=== PATIENT | female | born 1990 | race African-American/Black ===

== ENCOUNTER 2022-06-17 12:25 | Inpatient (IN) | payer BC ==
[2022-06-17] MEDS ORDERED: AMPICILLIN SODIUM 2 GM VIAL ONE (14:06)
[2022-06-17] MEDS ORDERED: AMPICILLIN - 2 GM in SODIUM CHLORIDE 100 ML IVPB ONE (14:24)
[2022-06-17] MEDS ORDERED: ELECTROLYTE-148 SOLN 1,000 ML IV SCH (14:30)
[2022-06-17 14:35] VITALS: BMI 31.9
[2022-06-17] MEDS ORDERED: PROMETHAZINE HCL 25 MG/1 ML VIAL IVPUSH ONE (14:41)
[2022-06-17] MEDS ORDERED: OXYTOCIN 15 UNITS/ LR 250 ML 250 ML IVPB SCH (14:45)
[2022-06-17] MEDS ORDERED: OXYTOCIN 30 UNITS in 0.9% NS 30 UNIT/500 ML INFUS.BAG IVPB SCH (14:45)
[2022-06-17] MEDS ORDERED: BUTORPHANOL TARTRATE 1 MG/ML VIAL IVPUSH ONE (15:00)
[2022-06-17] MEDS ORDERED: OXYTOCIN 30 UNITS in 0.9% NS 30 UNIT/500 ML INFUS.BAG IVPB ONE (16:09)
[2022-06-17 16:16] LABS: BASO % 0.3 % (0-2.0); EOS % 0.5 % (0-4.5); HEMATOCRIT 28.2 % (32.4-45.2); HEMOGLOBIN 9.9 GM/dL (10.7-15.3); LYMPH % 33.1 % (8-40); MCH 26.3 pg (25.7-33.7); MCHC 35.2 g/dl (32.0-36.0); MEAN CELL VOLUME 74.5 fl (80-96); MEAN PLT VOLUME 8.1 fl (7.5-11.1); MONO % 5.7 % (3.8-10.2); NEUT % 60.4 % (42.8-82.8); PLATELET COUNT 305 10^3/uL (134-434); RBC 3.79 M/mm3 (3.60-5.2); RDW 14.6 % (11.6-15.6); WHITE BLOOD COUNT 10.6 K/mm3 (4.0-10.0)
[2022-06-17 16:25] LABS: INR 1.05 (0.83-1.09); PROTHROMBIN TIME (PATIENT) 12.1 SEC (9.7-13.0)
[2022-06-17 16:28] LABS: ACTIVATED PTT 27.2 SECONDS (25.2-36.5)
[2022-06-17 16:30] LABS: CALCIUM 8.7 mg/dL (8.5-10.1)
[2022-06-17 16:31] LABS: BLOOD UREA NITROGEN 5.2 mg/dL (7-18)
[2022-06-17 16:34] LABS: CREATININE 0.6 mg/dL (0.55-1.3)
[2022-06-17] MEDS ORDERED: SODIUM CHLORIDE 100 ML IVPB ONE (17:29)
[2022-06-17] MEDS ORDERED: AMPICILLIN SODIUM 1 GM VIAL ONE ×2 (17:30→22:20)
[2022-06-17] MEDS: AMPICILLIN - 1 GM in SODIUM CHLORIDE 100 ML IVPB SCH ×2 (17:47→22:30)
[2022-06-17] MEDS ORDERED: BUTORPHANOL TARTRATE 2 MG/ML VIAL ONE (20:03)
[2022-06-17] MEDS ORDERED: PROMETHAZINE HCL 25 MG/1 ML VIAL ONE (20:04)
[2022-06-17] MEDS ORDERED: FENTANYL/BUPIVACAINE/NS/PF - PCEA - 50 ML DISP.SYRIN EP ONE (22:28)
[2022-06-17] MEDS ORDERED: NALOXONE HCL 0.4 MG/ML VIAL IVPUSH PRN (22:38)
[2022-06-17] MEDS ORDERED: BUPIVACAINE HCL/PF 0.25% (2.5MG/ML) 10 ML VIAL ONE (22:40)
[2022-06-17] MEDS ORDERED: FENTANYL/BUPIVACAINE/NS/PF - PCEA - 50 ML DISP.SYRIN EP SCH (22:45)
[2022-06-18] MEDS ORDERED: AMPICILLIN SODIUM 1 GM VIAL ONE ×2 (02:43→06:01)
[2022-06-18] MEDS ORDERED: SODIUM CHLORIDE 100 ML IVPB ONE (02:43)
[2022-06-18] MEDS: AMPICILLIN - 1 GM in SODIUM CHLORIDE 100 ML IVPB SCH ×3 (02:45→10:26)
[2022-06-18] MEDS ORDERED: FENTANYL/BUPIVACAINE/NS/PF - PCEA - 50 ML DISP.SYRIN EP ONE ×2 (03:43→07:18)
[2022-06-18] MEDS ORDERED: BUPIVACAINE HCL/PF 0.25% (2.5MG/ML) 10 ML VIAL ONE (06:55)
[2022-06-18] MEDS ORDERED: OXYTOCIN 20 UNITS in 0.9% NS 20 UNIT/1,000 ML INFUS.BAG IV ONE (07:39)
[2022-06-18] MEDS ORDERED: METHYLERGONOVINE MALEATE 0.2 MG/1 ML AMP IM PRN (09:38)
[2022-06-18] MEDS ORDERED: oxyCODONE HCL 5 MG TABLET PO PRN (09:38)
[2022-06-18] MEDS ORDERED: WITCH HAZEL 50% (TUCKS) 40 PAD/JAR PAD TP PRN (09:38)
[2022-06-18] MEDS ORDERED: IBUPROFEN 600 MG TABLET (FP) PO PRN (09:38)
[2022-06-18] MEDS ORDERED: BISACODYL 10 MG SUPP.RECT RC PRN (09:38)
[2022-06-18] MEDS ORDERED: BENZOCAINE 20% 57 GM BOTTLE TP PRN (09:38)
[2022-06-18] MEDS ORDERED: BENZOCAINE 28 GM HEMORRHOIDAL OINTMENT TP PRN (09:38)
[2022-06-18] MEDS ORDERED: ACETAMINOPHEN 325 MG TABLET (FP) PO PRN (09:38)
[2022-06-18] MEDS ORDERED: OXYTOCIN 20 UNITS in 0.9% NS 20 UNIT/1,000 ML INFUS.BAG IV SCH (09:45)
[2022-06-18 09:56] LABS: CORD BASE EXCESS -4.1 mmol/L (0-2); CORD HCO3 20.3 mmHg (20-29); CORD PCO2 35.4 mmHg (30-78); CORD pH 7.376 (7.14-7.44)
[2022-06-18 10:06] LABS: CORD BASE EXCESS -7.3 mmol/L (0-2); CORD PCO2 46.9 mmHg (30-78); CORD pH 7.248 (7.14-7.44)
[2022-06-19 09:38] LABS: HEMATOCRIT 28.5 % (32.4-45.2); HEMOGLOBIN 9.7 GM/dL (10.7-15.3); MCHC 33.9 g/dl (32.0-36.0); MEAN CELL VOLUME 73.9 fl (80-96); MEAN PLT VOLUME 7.9 fl (7.5-11.1); PLATELET COUNT 320 10^3/uL (134-434); RBC 3.86 M/mm3 (3.60-5.2); RDW 14.8 % (11.6-15.6)
[2022-06-19 10:08] LABS: ANISOCYTOSIS 0; HELMET CELLS 0; HOWELL-JOLLY BODIES 0; MACROCYTOSIS 0; OVALOCYTE 0; ROULEAU 0; SICKELED CELLS 0; TARGET CELLS 0; TEAR DROP CELLS 0; TOXIC GRANULATION 0
[2022-06-19 13:23] LABS: POC NITRAZINE POS
[2022-06-19] MEDS: AMPICILLIN - 1 GM in SODIUM CHLORIDE 100 ML IVPB SCH (19:41)
[2022-06-19] MEDS ORDERED: SENNOSIDES/DOCUSATE COMBO (SENNA PLUS) TABLET (UD) PO PRN (22:00)
[2022-06-20 09:10] LABS: BASO % 0.4 % (0-2.0); EOS % 1.8 % (0-4.5); HEMATOCRIT 29.6 % (32.4-45.2); HEMOGLOBIN 10.4 GM/dL (10.7-15.3); MCH 26.1 pg (25.7-33.7); MCHC 35.1 g/dl (32.0-36.0); MEAN CELL VOLUME 74.3 fl (80-96); MONO % 5.6 % (3.8-10.2); NEUT % 58.2 % (42.8-82.8); PLATELET COUNT 312 10^3/uL (134-434); RBC 3.98 M/mm3 (3.60-5.2)
[2022-06-20 10:37] VITALS: BP 122/84; PULSE 78; RESP 18; TEMP 97.2
== END 2022-06-20 13:10 | disposition home or self-care (01) | DRG 807 ==
LOC: JDEL 12:25 → JLDR 13:40 → J3W 06-18 12:00
PROVIDERS: ADMIT Obstetrics & Gynecology; ATTEND Obstetrics & Gynecology
PROC: 10E0XZZ Delivery of Products of Conception, External Approach (ICD-10-PCS; principal; 2022-06-18)
PROC: 0HQ9XZZ Repair Perineum Skin, External Approach (ICD-10-PCS; 2022-06-18)
PROC: 0W8NXZZ Division of Female Perineum, External Approach (ICD-10-PCS; 2022-06-18)
DX: O70.0 First degree perineal laceration during delivery (principal); O99.213 Obesity complicating pregnancy, third trimester; O99.824 Streptococcus B carrier state complicating childbirth; Z3A.39 39 weeks gestation of pregnancy; Z37.0 Single live birth
CPT/HCPCS: 36415; 36600; 59409; 80048; 82803; 83986-QW; 85025; 85610; 85730; 86780; 86850; 86900; 86901; C9803-CS; U0003; U0005

== ENCOUNTER 2022-11-13 08:31 | Emergency (ER) | payer BC, OTHER ==
[2022-11-13 08:37] VITALS: RESP 18; TEMP 98.6; BMI 27.6
[2022-11-13] MEDS ORDERED: KETOROLAC TROMETHAMINE 30 MG/1 ML VIAL IVPUSH ONE (09:28)
[2022-11-13] MEDS ORDERED: METOCLOPRAMIDE HCL INJECTION 10 MG/2 ML VIAL IVPB ONE (09:28)
[2022-11-13] MEDS ORDERED: SODIUM CHLORIDE 1,000 ML IV STA (09:29)
[2022-11-13] MEDS ORDERED: METOCLOPRAMIDE HCL INJECTION 10 MG/2 ML VIAL ONE (09:42)
[2022-11-13] MEDS ORDERED: KETOROLAC TROMETHAMINE 30 MG/1 ML VIAL ONE (09:42)
[2022-11-13 10:01] LABS: BASO % 1.2 % (0-2.0); EOS % 3.3 % (0-4.5); HEMATOCRIT 31.5 % (32.4-45.2); HEMOGLOBIN 10.8 GM/dL (10.7-15.3); LYMPH % 45.2 % (8-40); MCH 26.6 pg (25.7-33.7); MCHC 34.4 g/dl (32.0-36.0); MEAN CELL VOLUME 77.2 fl (80-96); MEAN PLT VOLUME 7.9 fl (7.5-11.1); MONO % 7.7 % (3.8-10.2); NEUT % 42.6 % (42.8-82.8); PLATELET COUNT 316 10^3/uL (134-434); RBC 4.08 M/mm3 (3.60-5.2); RDW 14.1 % (11.6-15.6); WHITE BLOOD COUNT 5.4 K/mm3 (4.0-10.0)
[2022-11-13 10:25] LABS: CALCIUM 9.2 mg/dL (8.5-10.1)
[2022-11-13 10:26] LABS: ALBUMIN 3.8 g/dl (3.4-5.0); BLOOD UREA NITROGEN 10.8 mg/dL (7-18)
[2022-11-13 10:29] LABS: CREATININE 0.6 mg/dL (0.55-1.3)
[2022-11-13 10:30] LABS: TOT PROT 6.8 g/dl (6.4-8.2)
[2022-11-13 10:31] LABS: BILIRUBIN,TOTAL 0.5 mg/dL (0.2-1)
[2022-11-13 12:53] VITALS: BP 117/78; PULSE 69
== END 2022-11-13 12:54 | disposition home or self-care (01) ==
LOC: JER 08:31
PROC: 3E0333Z Introduction of Anti-inflammatory into Peripheral Vein, Percutaneous Approach (ICD-10-PCS; principal; 2022-11-13)
PROC: 3E033GC Introduction of Other Therapeutic Substance into Peripheral Vein, Percutaneous Approach (ICD-10-PCS; 2022-11-13)
PROC: 3E0337Z Introduction of Electrolytic and Water Balance Substance into Peripheral Vein, Percutaneous Approach (ICD-10-PCS; 2022-11-13)
DX: R51.9 Headache, unspecified (principal)
CPT/HCPCS: 0241U-QW; 36415; 80053; 85025; 99284-25

== ENCOUNTER 2023-03-05 02:31 | Inpatient (IN) | payer OTHER ==
[2023-03-05 02:39] VITALS: BMI 32.8
[2023-03-05] MEDS ORDERED: ACETAMINOPHEN 1000 MG/100 ML BAG IVPB ONE (03:03)
[2023-03-05] MEDS ORDERED: LACTATED RINGERS SOLUTION 1,000 ML/1,000 ML INFUS.BAG IV SCH ×2 (03:15→08:45)
[2023-03-05] MEDS ORDERED: ACETAMINOPHEN INJECTION 100 ML IVPB ONE (03:16)
[2023-03-05 03:48] LABS: VENOUS BASE EXCESS -1.4 mmol/L (-2-2); VENOUS O2 SATURATION 58.3 % (70-80); VENOUS PH 7.394 (7.310-7.410)
[2023-03-05 03:49] LABS: BASO % 0.8 % (0-2.0); EOS % 0.5 % (0-4.5); HEMOGLOBIN 9.8 GM/dL (10.7-15.3); MCH 24.1 pg (25.7-33.7); MCHC 33.7 g/dl (32.0-36.0); MEAN CELL VOLUME 71.4 fl (80-96); MEAN PLT VOLUME 7.2 fl (7.5-11.1); MONO % 1.5 % (3.8-10.2); NEUT % 85.2 % (42.8-82.8); PLATELET COUNT 343 10^3/uL (134-434); RBC 4.07 M/mm3 (3.60-5.2); RDW 14.7 % (11.6-15.6); WHITE BLOOD COUNT 3.9 K/mm3 (4.0-10.0)
[2023-03-05 03:52] LABS: EPI CELLS 14 /uL (0-25.1); HYALINE CASTS 0 /uL (0-3.1); PH,URINE 5.5 (5.0-8.0); URINE APPEARANCE CLEAR; URINE BACTERIA 152 /uL (0-1359); URINE BILIRUBIN NEGATIVE (NEGATIVE); URINE COLOR YELLOW; URINE GLUCOSE (UA) NEGATIVE (NEGATIVE); URINE KETONE NEGATIVE (NEGATIVE); URINE LEUK ESTERASE NEGATIVE (NEGATIVE); URINE NITRITE NEGATIVE (NEGATIVE); URINE PROTEIN NEGATIVE (NEGATIVE); URINE RBC 7 /uL (0-23.9); URINE UROBILINOGEN 0.2 mg/dL (0.2-1.0); URINE WBC 28 /uL (0-25.8)
[2023-03-05 04:08] LABS: CHLORIDE 107 mmol/L (98-107); SODIUM 140 mmol/L (136-145)
[2023-03-05 04:10] LABS: ALBUMIN 3.8 g/dl (3.4-5.0); CALCIUM 8.9 mg/dL (8.5-10.1)
[2023-03-05 04:11] LABS: ANION GAP 9 MMOL/L (8-16); BLOOD UREA NITROGEN 14.2 mg/dL (7-18); CO2 24 mmol/L (21-32); GLUCOSE,RANDOM 86 mg/dL (74-106); MAGNESIUM 1.9 mg/dL (1.8-2.4)
[2023-03-05 04:13] LABS: CREATININE 0.8 mg/dL (0.55-1.3); SGOT/AST 23 U/L (15-37)
[2023-03-05 04:14] LABS: SGPT/ALT 22 U/L (13-61)
[2023-03-05 04:15] LABS: BILIRUBIN,TOTAL 0.3 mg/dL (0.2-1)
[2023-03-05 04:16] LABS: ALK PHOS 135 U/L (45-117)
[2023-03-05 04:17] LABS: LACTIC ACID 2.1 mmol/L (0.4-2.0)
[2023-03-05] MEDS ORDERED: KETOROLAC TROMETHAMINE 15 MG/ML VIAL IVPUSH ONE (04:46)
[2023-03-05] MEDS ORDERED: KETOROLAC TROMETHAMINE 15 MG/ML VIAL ONE (04:47)
[2023-03-05] MEDS: LACTATED RINGERS SOLUTION 1,000 ML/1,000 ML INFUS.BAG IV SCH ×2 (04:56→17:30)
[2023-03-05 06:04] LABS: INR 1.17 (0.83-1.09); PROTHROMBIN TIME (PATIENT) 13.6 SEC (9.7-13.0)
[2023-03-05] MEDS ORDERED: CEFTRIAXONE 2 GM-D5W BAG 2 GM/50 ML BAG IVPB ONE (06:40)
[2023-03-05] MEDS ORDERED: VANCOMYCIN HCL 1,500 MG in DEXTROSE 5%-WATER - 500 ML IVPB ONE (06:41)
[2023-03-05] MEDS ORDERED: CEFTRIAXONE 2 GM/100 ML BAG IVPB ONE (06:51)
[2023-03-05] MEDS ORDERED: VANCOMYCIN PREMIX 1.5 GM 1,500 MG/300 ML BAG IVPB ONE (07:29)
[2023-03-05] MEDS ORDERED: LACTATED RINGERS SOLUTION 1,000 ML/1,000 ML INFUS.BAG IV STA (08:44)
[2023-03-05] MEDS ORDERED: CEFTRIAXONE 2,000 MG in DEXTROSE 5%-WATER - 50 ML IVPB SCH (09:00)
[2023-03-05] MEDS ORDERED: KETOROLAC TROMETHAMINE 15 MG/ML VIAL IVPUSH PRN (09:01)
[2023-03-05] MEDS ORDERED: ACETAMINOPHEN 1000 MG/100 ML BAG IVPB PRN (09:01)
[2023-03-05 09:36] LABS: ERYTHROCYTE SEDIMENTATION RATE 14 mm/hr (0-20)
[2023-03-05] MEDS ORDERED: VANCOMYCIN/WATER 1250 MG 1,250 MG/250 ML BAG IVPB ONE (09:44)
[2023-03-05] MEDS ORDERED: VANCOMYCIN/WATER 1250 MG 1,250 MG/250 ML BAG IVPB SCH ×2 (10:15→18:00)
[2023-03-05 11:57] LABS: HIV INTERPRETATION NEGATIVE (NEGATIVE)
[2023-03-05] MEDS ORDERED: ENOXAPARIN NA (PORCINE) 40 MG/0.4 ML DISP.SYRIN SQ ONE (12:22)
[2023-03-05] MEDS ORDERED: ONDANSETRON 4 MG/2 ML VIAL IVPUSH PRN (12:32)
[2023-03-05] MEDS: ENOXAPARIN NA (PORCINE) 40 MG/0.4 ML DISP.SYRIN SQ SCH (12:39)
[2023-03-05 14:44] LABS: CSF APPEARANCE CLEAR (CLEAR); CSF COLOR COLORLESS (COLORLESS); CSF WBC 0 mm3 (0-5)
[2023-03-05] MEDS ORDERED: ACETAMINOPHEN/CAFFEINE/BUTALBITAL 1 TAB PO ONE (15:13)
[2023-03-05] MEDS ORDERED: METOCLOPRAMIDE HCL 10 MG TABLET (FP) PO ONE ×2 (15:13→15:29)
[2023-03-05] MEDS ORDERED: ACETAMINOPHEN/CAFFEINE/BUTALBITAL 1 TAB ONE (15:30)
[2023-03-05] MEDS: CEFTRIAXONE 2 GM in DEXTROSE 5%-WATER 100 ML IVPB SCH (17:42)
[2023-03-05] MEDS ORDERED: CEFTRIAXONE IVPB SCH (18:00)
[2023-03-05] MEDS ORDERED: DEXTROSE 5% IVPB SCH (18:00)
[2023-03-05] MEDS ORDERED: WATER IVPB SCH (18:00)
[2023-03-05] MEDS: VANCOMYCIN/WATER 1250 MG 1,250 MG/250 ML BAG IVPB SCH (22:23)
[2023-03-06] MEDS: CEFTRIAXONE 2 GM in DEXTROSE 5%-WATER 100 ML IVPB SCH (05:10)
[2023-03-06 08:04] LABS: BASO % 0.8 % (0-2.0); EOS % 0.4 % (0-4.5); HEMATOCRIT 26.5 % (32.4-45.2); HEMOGLOBIN 8.9 GM/dL (10.7-15.3); MCH 24.3 pg (25.7-33.7); MCHC 33.6 g/dl (32.0-36.0); MEAN CELL VOLUME 72.3 fl (80-96); MEAN PLT VOLUME 8.3 fl (7.5-11.1); MONO % 7.7 % (3.8-10.2); NEUT % 74.1 % (42.8-82.8); PLATELET COUNT 304 10^3/uL (134-434); RBC 3.67 M/mm3 (3.60-5.2); RDW 15.2 % (11.6-15.6); WHITE BLOOD COUNT 8.7 K/mm3 (4.0-10.0)
[2023-03-06 08:21] LABS: POTASSIUM 3.6 mmol/L (3.5-5.1)
[2023-03-06 08:24] LABS: CALCIUM 8.3 mg/dL (8.5-10.1)
[2023-03-06 08:25] LABS: BLOOD UREA NITROGEN 5.2 mg/dL (7-18); MAGNESIUM 1.9 mg/dL (1.8-2.4)
[2023-03-06 08:28] LABS: CREATININE 0.6 mg/dL (0.55-1.3); PHOSPHOROUS 3.4 mg/dL (2.5-4.9)
[2023-03-06 08:29] LABS: TOT PROT 5.7 g/dl (6.4-8.2)
[2023-03-06 08:30] LABS: BILIRUBIN,TOTAL 0.3 mg/dL (0.2-1)
[2023-03-06] MEDS: LACTATED RINGERS SOLUTION 1,000 ML/1,000 ML INFUS.BAG IV SCH ×2 (09:59→10:06)
[2023-03-06] MEDS: ENOXAPARIN NA (PORCINE) 40 MG/0.4 ML DISP.SYRIN SQ SCH (10:05)
[2023-03-06] MEDS: VANCOMYCIN/WATER 1250 MG 1,250 MG/250 ML BAG IVPB SCH ×2 (10:05→21:45)
[2023-03-06] MEDS ORDERED: PIPERACILLIN/TAZOB 3.375 GM 3.375 GM in DEXTROSE 5%-WATER - 50 ML IVPB SCH (11:15)
[2023-03-06] MEDS: FERROUS SO4 325 MG TABLET (FP) PO SCH (15:14)
[2023-03-06] MEDS: SODIUM CHLORIDE 1,000 ML IV SCH (17:24)
[2023-03-07] MEDS: FERROUS SO4 325 MG TABLET (FP) PO SCH (09:43)
[2023-03-07] MEDS: SODIUM CHLORIDE 1,000 ML IV SCH (09:44)
[2023-03-07] MEDS: ENOXAPARIN NA (PORCINE) 40 MG/0.4 ML DISP.SYRIN SQ SCH ×2 (09:44→09:50)
[2023-03-07 12:28] VITALS: RESP 20
[2023-03-07 13:18] LABS: HEMATOCRIT 27.9 % (32.4-45.2); HEMOGLOBIN 9.3 GM/dL (10.7-15.3); MCH 24.1 pg (25.7-33.7); MCHC 33.2 g/dl (32.0-36.0); MEAN CELL VOLUME 72.6 fl (80-96); MEAN PLT VOLUME 8.5 fl (7.5-11.1); PLATELET COUNT 353 10^3/uL (134-434); RBC 3.85 M/mm3 (3.60-5.2); RDW 15.3 % (11.6-15.6); WHITE BLOOD COUNT 5.2 K/mm3 (4.0-10.0)
[2023-03-07 13:40] LABS: POTASSIUM 4.1 mmol/L (3.5-5.1)
[2023-03-07 13:43] LABS: ALBUMIN 3.2 g/dl (3.4-5.0); BLOOD UREA NITROGEN 5.5 mg/dL (7-18); CALCIUM 8.6 mg/dL (8.5-10.1)
[2023-03-07 13:46] LABS: CREATININE 0.6 mg/dL (0.55-1.3); PHOSPHOROUS 3.7 mg/dL (2.5-4.9)
[2023-03-07 13:48] LABS: BILIRUBIN,TOTAL 0.2 mg/dL (0.2-1); TOT PROT 6.3 g/dl (6.4-8.2)
[2023-03-07 14:20] LABS: ANISOCYTOSIS 2+; MACROCYTOSIS 1+
[2023-03-07 15:20] VITALS: BP 123/70; PULSE 72; TEMP 98.1
[2023-03-08 10:09] LABS: MUMPS AB IGG CSF < 5.0 AU/mL (<=10.9)
== END 2023-03-07 15:15 | disposition home or self-care (01) | DRG 723 ==
LOC: JER 02:31 → JERBED 04:42 → J7W 16:23
PROVIDERS: ADMIT Internal Medicine; ATTEND Student in an Organized Health Care Education/Training Program
PROC: 009U3ZX Drainage of Spinal Canal, Percutaneous Approach, Diagnostic (ICD-10-PCS; principal; 2023-03-05)
PROC: B01BZZZ Fluoroscopy of Spinal Cord (ICD-10-PCS; 2023-03-05)
DX: B34.9 Viral infection, unspecified (principal); R50.9 Fever, unspecified; D64.9 Anemia, unspecified; R53.1 Weakness; R51.9 Headache, unspecified; E66.9 Obesity, unspecified; Z68.32 Body mass index [BMI] 32.0-32.9, adult; Z98.84 Bariatric surgery status
CPT/HCPCS: 0241U-QW; 36415; 62272; 70450-TC; 71045-TC-FY; 72126-TC; 72129-TC; 72132-TC; 72142-TC; 72147-TC; 72149-TC; 80053; 81003; 82550; 82553; 82728; 82803; 82930; 83540; 83550; 83605; 83735; 84100; 84703; 85025; 85610; 85651; 85730; 86618; 86666; 86682; 86694; 86735; 86765; 86787; 86788; 86789; 86790; 86850; 86900; 86901; 87040; 87070; 87086; 87205; 87207; 87389; 87651; 87798; 93005; 93010; 93970-TC; 99285-25; A9579; Q9967

== ENCOUNTER 2023-07-16 11:57 | Emergency (ER) | payer OTHER ==
[2023-07-16 12:13] VITALS: BP 116/72; PULSE 74; RESP 18; TEMP 98.8; BMI 33.4
[2023-07-16] MEDS ORDERED: ACETAMINOPHEN 1000 MG/100 ML BAG IVPB ONE (13:28)
[2023-07-16] MEDS ORDERED: LACTATED RINGERS SOLUTION 1000 ML INFUS.BAG IV ONE (13:28)
[2023-07-16] MEDS ORDERED: MECLIZINE HCL 25 MG TABLET (FP) PO ONE (13:28)
[2023-07-16] MEDS ORDERED: METOCLOPRAMIDE HCL INJECTION 10 MG/2 ML VIAL IVPUSH ONE (13:28)
[2023-07-16] MEDS ORDERED: ACETAMINOPHEN INJECTION 100 ML IVPB ONE (13:59)
[2023-07-16] MEDS ORDERED: METOCLOPRAMIDE HCL INJECTION 10 MG/2 ML VIAL ONE (13:59)
[2023-07-16 14:38] LABS: HEMATOCRIT 28.3 % (32.4-45.2); HEMOGLOBIN 9.5 GM/dL (10.7-15.3); LYMPH % 40.9 % (8-40); MCHC 33.5 g/dl (32.0-36.0); MEAN CELL VOLUME 65.7 fl (80-96); MEAN PLT VOLUME 7.3 fl (7.5-11.1); MONO % 7.2 % (3.8-10.2); NEUT % 48.9 % (42.8-82.8); PLATELET COUNT 415 10^3/uL (134-434); RDW 18.4 % (11.6-15.6); WHITE BLOOD COUNT 6.5 K/mm3 (4.0-10.0)
[2023-07-16 14:42] LABS: EPI CELLS >36 /uL (0-25.1); HYALINE CASTS 1 /uL (0-3.1); URINE APPEARANCE CLEAR; URINE BACTERIA 215 /uL (0-1359); URINE BILIRUBIN NEGATIVE (NEGATIVE); URINE COLOR YELLOW; URINE GLUCOSE (UA) NEGATIVE (NEGATIVE); URINE KETONE TRACE (NEGATIVE); URINE LEUK ESTERASE 1+ (NEGATIVE); URINE NITRITE NEGATIVE (NEGATIVE); URINE PROTEIN NEGATIVE (NEGATIVE); URINE RBC 8 /uL (0-23.9); URINE WBC 22 /uL (0-25.8)
[2023-07-16 14:46] LABS: INR 1.17 (0.83-1.09); PROTHROMBIN TIME (PATIENT) 13.5 SEC (9.7-13.0)
[2023-07-16 14:48] LABS: ACTIVATED PTT 29.7 SECONDS (25.2-36.5); HCG,QUALITATIVE URINE Positive
[2023-07-16 15:05] LABS: POTASSIUM 4.5 mmol/L (3.5-5.1)
[2023-07-16 15:07] LABS: CALCIUM 9.1 mg/dL (8.5-10.1)
[2023-07-16 15:08] LABS: ALBUMIN 3.9 g/dl (3.4-5.0); BLOOD UREA NITROGEN 8.4 mg/dL (7-18)
[2023-07-16 15:09] LABS: MAGNESIUM 2.1 mg/dL (1.8-2.4)
[2023-07-16 15:11] LABS: CREATININE 0.7 mg/dL (0.55-1.3)
[2023-07-16 15:13] LABS: BILIRUBIN,TOTAL 0.5 mg/dL (0.2-1); TOT PROT 7.3 g/dl (6.4-8.2)
[2023-07-16 15:29] LABS: ANISOCYTOSIS 1+; MACROCYTOSIS 0; PLATELET ESTIMATE NORMAL
== END 2023-07-16 19:06 | disposition home or self-care (01) ==
LOC: JER 11:57
PROC: 3E033NZ Introduction of Analgesics, Hypnotics, Sedatives into Peripheral Vein, Percutaneous Approach (ICD-10-PCS; principal; 2023-07-16)
PROC: 3E033GC Introduction of Other Therapeutic Substance into Peripheral Vein, Percutaneous Approach (ICD-10-PCS; 2023-07-16)
DX: O26.891 Other specified pregnancy related conditions, first trimester (principal); R55 Syncope and collapse; R42 Dizziness and giddiness; O99.351 Diseases of the nervous system complicating pregnancy, first trimester; R51.9 Headache, unspecified; H53.149 Visual discomfort, unspecified; O23.41 Unspecified infection of urinary tract in pregnancy, first trimester; R34 Anuria and oliguria; Z3A.01 Less than 8 weeks gestation of pregnancy; Z20.822 Contact with and (suspected) exposure to COVID-19
CPT/HCPCS: 0241U-QW; 36415; 71046-TC-FY; 73090-TC-RT-FY; 73110-TC-RT-FY; 73130-TC-RT-FY; 76817-TC; 80053; 81003; 82962; 83735; 84484; 84702; 84703; 85025; 85610; 85730; 86850; 86900; 86901; 87086; 93005; 93010; 96374; 96375; 99285-25

== ENCOUNTER 2023-08-08 19:29 | Emergency (ER) | payer OTHER ==
[2023-08-08 19:38] VITALS: BP 113/73; PULSE 65; RESP 18; TEMP 98.8; BMI 33.4
[2023-08-08 20:48] LABS: BASO % 0.6 % (0-2.0); EOS % 1.5 % (0-4.5); HEMATOCRIT 26.9 % (32.4-45.2); HEMOGLOBIN 8.7 GM/dL (10.7-15.3); MCH 21.8 pg (25.7-33.7); MCHC 32.5 g/dl (32.0-36.0); MEAN CELL VOLUME 67.2 fl (80-96); MEAN PLT VOLUME 7.5 fl (7.5-11.1); MONO % 7.2 % (3.8-10.2); NEUT % 58.7 % (42.8-82.8); PLATELET COUNT 424 10^3/uL (134-434); RBC 4.01 M/mm3 (3.60-5.2); RDW 19.2 % (11.6-15.6); WHITE BLOOD COUNT 7.8 K/mm3 (4.0-10.0)
[2023-08-08 20:56] LABS: EPI CELLS 11 /uL (0-25.1); HYALINE CASTS 0 /uL (0-3.1); PH,URINE 5.5 (5.0-8.0); URINE APPEARANCE CLEAR; URINE BACTERIA 169 /uL (0-1359); URINE BILIRUBIN NEGATIVE (NEGATIVE); URINE COLOR YELLOW; URINE GLUCOSE (UA) NEGATIVE (NEGATIVE); URINE KETONE TRACE (NEGATIVE); URINE LEUK ESTERASE TRACE (NEGATIVE); URINE NITRITE NEGATIVE (NEGATIVE); URINE PROTEIN NEGATIVE (NEGATIVE); URINE RBC 9 /uL (0-23.9); URINE UROBILINOGEN 0.2 mg/dL (0.2-1.0); URINE WBC 11 /uL (0-25.8)
[2023-08-08 21:09] LABS: CALCIUM 9.1 mg/dL (8.5-10.1)
[2023-08-08 21:10] LABS: POTASSIUM 4.3 mmol/L (3.5-5.1)
[2023-08-08 21:13] LABS: CREATININE 0.5 mg/dL (0.55-1.3)
[2023-08-08 22:03] LABS: ANISOCYTOSIS 1+; MACROCYTOSIS 1+; TARGET CELLS 1+
== END 2023-08-08 21:59 | disposition home or self-care (01) ==
LOC: JER 19:29
DX: O20.9 Hemorrhage in early pregnancy, unspecified (principal); Z3A.10 10 weeks gestation of pregnancy
CPT/HCPCS: 36415; 76817-TC; 80048; 81003; 84702; 85025; 86850; 86900; 86901; 87086; 99284-25

== ENCOUNTER 2024-03-10 11:40 | Inpatient (IN) | payer OTHER ==
[2024-03-10 14:26] VITALS: BMI 34.9
[2024-03-10] MEDS: DINOPROSTONE 10 MG VAGINAL SUPPOSITORY VG ONE (16:20)
[2024-03-11] MEDS ORDERED: BUTORPHANOL TARTRATE 2 MG/ML VIAL ONE (02:10)
[2024-03-11] MEDS: ELECTROLYTE-148 SOLN 1,000 ML IV SCH (02:30)
[2024-03-11] MEDS: BUTORPHANOL TARTRATE 1 MG/ML VIAL IVPB PRN (02:30)
[2024-03-11] MEDS ORDERED: OXYTOCIN 30 UNITS in 0.9% NS 30 UNIT/500 ML INFUS.BAG IVPB ONE (05:29)
[2024-03-11] MEDS: OXYTOCIN 30 UNITS in 0.9% NS 30 UNIT/500 ML INFUS.BAG IVPB SCH (05:35)
[2024-03-11] MEDS ORDERED: NALOXONE HCL 0.4 MG/ML VIAL IVPUSH PRN (08:16)
[2024-03-11] MEDS: FENTANYL/BUPIVACAINE/NS/PF - PCEA - 50 ML DISP.SYRIN EP SCH (08:55)
[2024-03-11] MEDS ORDERED: FENTANYL/BUPIVACAINE/NS/PF - PCEA - 50 ML DISP.SYRIN EP ONE ×4 (09:07→20:15)
[2024-03-11] MEDS ORDERED: AMPICILLIN SODIUM 2 GM VIAL ONE (15:14)
[2024-03-11] MEDS: AMPICILLIN - 2 GM in SODIUM CHLORIDE 100 ML IVPB ONE (16:12)
[2024-03-11] MEDS: AMPICILLIN - 1 GM in SODIUM CHLORIDE 100 ML IVPB SCH (19:35)
[2024-03-11] MEDS ORDERED: AMPICILLIN SODIUM 1 GM VIAL ONE ×2 (19:42→23:30)
[2024-03-11] MEDS ORDERED: FENTANYL CITRATE/PF 50 MCG/ML VIAL ONE (21:30)
[2024-03-12] MEDS ORDERED: LIDOCAINE HCL 1% PRESERVATIVE FREE - 30ML VIAL ONE (00:09)
[2024-03-12] MEDS ORDERED: FENTANYL/BUPIVACAINE/NS/PF - PCEA - 50 ML DISP.SYRIN EP ONE (00:09)
[2024-03-12] MEDS ORDERED: OXYTOCIN 20 UNITS in 0.9% NS 20 UNIT/1,000 ML INFUS.BAG IV ONE (00:11)
[2024-03-12] MEDS: OXYTOCIN 20 UNITS in 0.9% NS 20 UNIT/1,000 ML INFUS.BAG IV SCH (00:45)
[2024-03-12] MEDS ORDERED: BISACODYL 10 MG SUPP.RECT RC PRN (01:01)
[2024-03-12] MEDS ORDERED: BENZOCAINE 28 GM HEMORRHOIDAL OINTMENT TP PRN (01:01)
[2024-03-12] MEDS ORDERED: METHYLERGONOVINE MALEATE 0.2 MG/1 ML AMP IM PRN (01:01)
[2024-03-12] MEDS ORDERED: WITCH HAZEL 50% (TUCKS) 40 PAD/JAR PAD TP PRN (01:01)
[2024-03-12] MEDS ORDERED: oxyCODONE HCL 5 MG TABLET PO PRN (01:01)
[2024-03-12 01:28] LABS: CORD BASE EXCESS -6.3 mmol/L (0-2); CORD HCO3 16.2 mmHg (20-29); CORD PCO2 25.1 mmHg (30-78); CORD pH 7.429 (7.14-7.44)
[2024-03-12] MEDS ORDERED: IBUPROFEN 600 MG TABLET (FP) PO ONE (02:33)
[2024-03-12] MEDS: IBUPROFEN 600 MG TABLET (FP) PO PRN (02:35)
[2024-03-12] MEDS: ACETAMINOPHEN 325 MG TABLET (FP) PO PRN (05:06)
[2024-03-12] MEDS: FERROUS SO4 325 MG TABLET (FP) PO SCH (08:40)
[2024-03-12] MEDS: PRENATAL VITAMINS W/ FOLIC ACID TABLET (FP) PO SCH (10:39)
[2024-03-13 08:06] LABS: BASO % 0.4 % (0-2.0); EOS % 1.3 % (0-4.5); HEMATOCRIT 29.9 % (32.4-45.2); HEMOGLOBIN 10.6 GM/dL (10.7-15.3); MCH 29.4 pg (25.7-33.7); MCHC 35.6 g/dl (32.0-36.0); MEAN CELL VOLUME 82.7 fl (80-96); MEAN PLT VOLUME 8.1 fl (7.5-11.1); NEUT % 69.3 % (42.8-82.8); PLATELET COUNT 274 10^3/uL (134-434); RBC 3.61 M/mm3 (3.60-5.2); RDW 13.8 % (11.6-15.6); WHITE BLOOD COUNT 16.5 K/mm3 (4.0-10.0)
[2024-03-13] MEDS ORDERED: SENNOSIDES/DOCUSATE COMBO (SENNA PLUS) TABLET (UD) PO PRN (22:00)
[2024-03-13 22:12] VITALS: RESP 17
[2024-03-14 08:50] VITALS: BP 122/85; PULSE 70; TEMP 98.6
[2024-03-14] MEDS: BENZOCAINE 20% 57 GM BOTTLE TP PRN (10:27)
== END 2024-03-14 12:35 | disposition home or self-care (01) | DRG 560 ==
LOC: JDEL 11:40 → JLDR 13:40 → J3W 03-12 03:08
PROVIDERS: ADMIT Obstetrics & Gynecology; ATTEND Obstetrics & Gynecology
PROC: 0HQ9XZZ Repair Perineum Skin, External Approach (ICD-10-PCS; principal; 2024-03-12)
PROC: 10E0XZZ Delivery of Products of Conception, External Approach (ICD-10-PCS; 2024-03-12)
DX: O48.0 Post-term pregnancy (principal); Z3A.40 40 weeks gestation of pregnancy; O70.0 First degree perineal laceration during delivery; O69.81X0 Labor and delivery complicated by cord around neck, without compression, not applicable or unspecified; Z37.0 Single live birth
CPT/HCPCS: 36415; 36600; 59409; 82803; 85025; 86850; 86900; 86901

== ENCOUNTER 2024-08-23 11:48 | Emergency (ER) | payer OTHER ==
[2024-08-23 12:07] VITALS: BP 125/85; PULSE 60; RESP 18; TEMP 98.3; BMI 36.0
[2024-08-23] MEDS ORDERED: METOCLOPRAMIDE HCL INJECTION 10 MG/2 ML VIAL ONE (12:34)
[2024-08-23] MEDS: METOCLOPRAMIDE HCL INJECTION 10 MG/2 ML VIAL IVPUSH ONE (12:54)
[2024-08-23] MEDS: SODIUM CHLORIDE 0.9% 500 ML INFUS.BAG IV ONE (12:54)
== END 2024-08-23 14:31 | disposition home or self-care (01) ==
LOC: JER 11:48
PROC: 3E033GC Introduction of Other Therapeutic Substance into Peripheral Vein, Percutaneous Approach (ICD-10-PCS; principal; 2024-08-23)
PROC: 3E033GC Introduction of Other Therapeutic Substance into Peripheral Vein, Percutaneous Approach (ICD-10-PCS; 2024-08-23)
DX: R51.9 Headache, unspecified (principal); R09.81 Nasal congestion; R42 Dizziness and giddiness
CPT/HCPCS: 93005; 93010; 99284-25